=== PATIENT | female | born 1985 | race Caucasian/White ===

== ENCOUNTER 2021-04-15 06:47 | Emergency (ER) | payer BC ==
[~2021-04-15] VITALS: Ht 144.8 cm; Wt 71.7 kg
[2021-04-15 06:52] VITALS: BP 114/71
--- NOTE | 2021-04-15 07:00 | NUR ---
Kasia castro in [facility] - 04/15/21 at 0724 by [facility] pt in [place].
--- NOTE | 2021-04-15 07:10 | NUR ---
pt in bed 11.
--- NOTE | 2021-04-15 07:20 | NUR ---
35 y/o female bug bite on left upper posterior thigh x6days. reports 10/10 pain, denies discharge. pt states she went to urgent care 2 days ago and was prescribed keflex and ibuprofen, pts states she has not experienced relief. pt took ibuprofen at 5am. denies hx, rx and allergies
--- NOTE | 2021-04-15 07:27 | NUR ---
I&D Procedure done by Dr ESCOBAR. Minimal amt of bleeding noted. Pt tolerated procedure. Wound care discussed w/ patient.
[2021-04-15] MEDS ORDERED: BACITRACIN OINT 500 UNITS/GM PKT TP ONE ×2 (07:47→07:50)
[2021-04-15] MEDS ORDERED: BACI1PAC6 TP (07:49)
[2021-04-15 08:06] VITALS: BP 114/71
== END 2021-04-15 08:06 | disposition home or self-care (01) ==
LOC: MED 06:47
DX: L02.31 Cutaneous abscess of buttock (principal); Z79.899 Other long term (current) drug therapy
CPT/HCPCS: 99282

== ENCOUNTER 2022-03-22 22:30 | Emergency (ER) | payer BC ==
[~2022-03-22] VITALS: Ht 142.2 cm; Wt 65.8 kg
[~2022-03-22 22:30] MED LIST: BACI-416 TP
[2022-03-22 22:35] VITALS: BP 110/72
--- NOTE | 2022-03-22 22:38 | NUR ---
TO LOBBY A/W BED AMBULATORY
--- NOTE | 2022-03-23 01:20 | NUR ---
SEEN AND EXAMINED BY AKIN
[2022-03-23] MEDS ORDERED: ACETAMINOPHEN EXTRA STRENGTH 500 MG TAB PO ONE (01:35)
[2022-03-23 01:49] VITALS: BP 115/80
--- NOTE | 2022-03-23 01:49 | NUR ---
Patient discharged with v/s stable. Written and verbal after care instructions given and explained. Patient verbalized understanding. Ambulatory with steady gait. All questions addressed prior to discharge. Advised to follow up with PMD.
== END 2022-03-23 01:49 | disposition home or self-care (01) ==
LOC: MED 22:30
DX: M54.50 Low back pain, unspecified (principal)
CPT/HCPCS: 99282

== ENCOUNTER 2022-10-12 03:20 | Emergency (ER) | payer BC ==
[~2022-10-12] VITALS: Ht 142.2 cm; Wt 72.6 kg
[~2022-10-12 03:20] MED LIST changes: -BACI-416 TP; +BACI-418 TP
[2022-10-12 03:39] VITALS: BP 124/80; PULSE 102; RESP 16; TEMP 98; O2SAT 98
--- NOTE | 2022-10-12 03:39 | NUR ---
TO BED AMBULATORY
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
[2022-10-12] MEDS ORDERED: IBUP-2213 PO (04:00)
[2022-10-12] MEDS ORDERED: ACETAMINOPHEN EXTRA STRENGTH 500 MG TAB PO ONE (04:00)
[2022-10-12] MEDS ORDERED: ACET-10509 PO (04:00)
[2022-10-12] MEDS ORDERED: IBUPROFEN 600 MG TAB PO ONE (04:00)
[2022-10-12 04:50] VITALS: BP 121/79; PULSE 73; RESP 16; TEMP 98; O2SAT 99
== END 2022-10-12 04:50 | disposition home or self-care (01) ==
LOC: MED 03:20
DX: S16.1XXA Strain of muscle, fascia and tendon at neck level, initial encounter (principal); S29.012A Strain of muscle and tendon of back wall of thorax, initial encounter; Z79.899 Other long term (current) drug therapy; Z79.1 Long term (current) use of non-steroidal anti-inflammatories (NSAID); V89.2XXA Person injured in unspecified motor-vehicle accident, traffic, initial encounter; Y93.89 Activity, other specified; Y92.410 Unspecified street and highway as the place of occurrence of the external cause; Y99.8 Other external cause status
CPT/HCPCS: 99283